=== PATIENT | female | born 1965 | race Caucasian/White ===

== ENCOUNTER 2016-10-12 22:17 | Emergency (ER) | payer OTHER ==
[2016-10-12] MEDS ORDERED: NORFLEX IM ONE (23:03)
[2016-10-12] MEDS ORDERED: TORADOL IM ONE (23:03)
--- NOTE | 2016-10-12 23:06 | PROVIDER DOCUMENTATION ---
HPI-Headache - General Source: patient - History of Present Illness-Headache Headache Location: reports: global (beginning in head) Quality of Pain: reports: aching Severity: reports: mild Onset/Duration: reports: other (3 weeks) Timing: reports: still present Headache severity at the maximum: mild Headache Exacerbated by:: reports: light Associated Symptoms: reports: nausea Similar Symptoms Previously?: No Recently seen or treated by another doctor?: No <Dena Carrasquillo - Last Filed: 10/12/16 23:06> <Meg Suarez - Last Filed: 10/12/16 23:56> - General Chief Complaint: Headache Stated Complaint: HEADACHE Time Seen by Provider: 10/12/16 22:55 Allergies/Adverse Reactions: Patient Allergies Allergy/AdvReac Type Severity Reaction Status Date / Time Sulfa (Sulfonamide Allergy RASH Verified 05/20/16 02:43 Antibiotics) - History of Present Illness-Headache Nature of Presenting Problem: 51 year old F presents to the ED with a cc of a headache x3 weeks. Pt states that pain began in her neck and is radiating to head. Pt states that it has just began to cause nausea and photophobia. (Dena Carrasquillo) Review of Systems - Adult - REVIEW OF SYSTEMS - ADULT Constitutional: denies: chills, fever Eyes: reports: no symptoms reported Ears, Nose, Mouth & Throat: reports: no symptoms reported Cardiovascular: reports: no symptoms reported Respiratory: denies: cough, shortness of breath Gastrointestinal: denies: nausea, vomiting Genitourinary: reports: no symptoms reported Musculoskeletal: reports: neck pain. denies: bone pain Integumentary: denies: skin sores/ulcer, skin thickening Neurological: reports: headache/migraines. denies: dizziness/vertigo Psychiatric: reports: no symptoms reported Endocrine: reports: no symptoms reported Hematologic/Lymphatic: reports: no symptoms reported Allergic/Immunologic: reports: no symptoms reported All Other Systems: Reviewed and Negative <Dena Carrasquillo - Last Filed: 10/12/16 23:06> Past History - Adult - PAST MEDICAL HISTORY-ADULT Review of Records: reports: Nursing Assessment Review, Medications Reviewed Major Childhood Illnesses: reports: denies history Cardiovascular: reports: HTN, hyperlipidemia Additional History: sarcoidosis - PRIOR SURGERIES/PROCEDURES Surgical/Procedure History: reports: cholecystectomy, cardiac stent, hysterectomy, BTL, orthopedic (extremity), back/neck, other (stent to left eye) - IMMUNIZATION STATUS Childhood Immunizations: See Nurse Assessment Flu Vaccine: See Nurse Assessment - SOCIAL HISTORY Smoking: cigarettes, less than 1 pack/day Provider spent 3-5 mins advising pt. on dangers of tobacco.: Discussed manners to quit use, and f/u contacts for add'l counseling. Substance Use: none/never Alcohol Use Frequency: never <Dena Carrasquillo - Last Filed: 10/12/16 23:06> - PAST MEDICAL HISTORY-ADULT Major Childhood Illnesses: reports: denies history Cardiovascular: reports: angina, hyperlipidemia Respiratory: reports: denies history Gastrointestinal: reports: denies history Obstetrical/Gynecological: reports: denies history Genitourinary: reports: denies history Musculoskeletal: reports: denies history Neurological: reports: denies history Endocrine/Immune: reports: denies history Other Conditions: reports: denies history - PRIOR SURGERIES/PROCEDURES Surgical/Procedure History: reports: cholecystectomy, cardiac stent, hysterectomy, BTL - IMMUNIZATION STATUS Childhood Immunizations: See Nurse Assessment Flu Vaccine: See Nurse Assessment - FAMILY HISTORY Family History: reviewed, not pertinent <Meg Suarez - Last Filed: 10/12/16 23:56> Physical Exam- Neurological - Physical Exam-Neuro Initial Vital Signs Reviewed: Yes General Appearance: appears well, alert, mild distress Eye Exam: bilateral eye: normal inspection, PERRL, EOMI HENMT: normocephalic/atraumatic, moist mucous membranes, normal ENT inspection Head Injury: no evidence of injury Neck: other (moderate muscle spasms in bilateral cervical PSM). 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 negative: rash - Glascow Coma Scale Best Eye Response: (4) open spontaneously Best Verbal Response: (5) oriented Best Motor Response: (6) obeys commands Total Glascow Score: 15 <Meg Suarez - Last Filed: 10/12/16 23:56> Progress <Dena Carrasquillo - Last Filed: 10/12/16 23:06> <Meg Suarez - Last Filed: 10/12/16 23:56> - PLAN OF CARE/RESULTS Progress/Plan/Lab Results: Vital Signs Temp Pulse Resp BP Pulse Ox 10/12/16 22:45 97.7 F 77 18 150/94 100 Sulfa (Sulfonamide Antibiotics) Allergy (Verified 05/20/16 02:43) RASH No Home Medications 10/12/16 Orders Category Date Time Status Ketorolac [Toradol] Med 10/12/16 23:03 Discontinued 60 mg IM NOW ONE Orphenadrine [Norflex] Med 10/12/16 23:03 Discontinued 60 mg IM NOW ONE (Meg Suarez) Departure <Dena Carrasquillo - Last Filed: 10/12/16 23:06> - Departure Time of Disposition Order: 23:55 Certified Medical Emergency: Emergent <Meg Suarez - Last Filed: 10/12/16 23:56> - Departure DIAGNOSIS: Cervicalgia Disposition: HOME 01 Condition: Good Additional Instructions: ED Follow Up Instructions: You have been treated by a care provider in the Emergency Department. These instructions are being provided to you so you can have an understanding of how to care for yourself upon discharge. Upon discharge from the Emergency Department, you are responsible for making arrangements for follow-up care by a physician of your choice. Take all prescribed medications as directed. Return to the Emergency Department immediately for any new or worsening symptoms. You may call the Physician Referral phone number at [phone] to obtain a list of Physicians who are taking new patients. Prescriptions: Ibuprofen 800 mg PO BID #20 tablet Methylprednisolone [Medrol Dosepak] 4 mg PO DIRECTED #1 package Methocarbamol 500 mg PO BID #20 tablet Ondansetron Odt [Zofran 4 mg Odt] 4 mg PO Q6H PRN PRN #15 tablet PRN Reason: Nausea Referrals: Joanna Oliva DO [Primary Care Provider] - Ronen Vergara MD [STAFF PHYSICIAN] - Attestation - Scribe Verification/Attestation Scribe:: Dena Carrasquillo Acting as Scribe for:: Meg Suarez Scribe documention review:: This chart was documented by a scribe and accurately reflects the service the provider performed and the decisions made by the provider. 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 <Meg Suarez - Last Filed: 10/12/16 23:56> Physician Attestation - Physician Attestation I, the provider, attest to the following statement:: Meg Suarez Physician documentation Attestation:: This documentation recorded by the scribe accurately reflects the service I personally performed and the decisions made by me. <Dena Carrasquillo - Last Filed: 10/12/16 23:06>
[2016-10-13 00:04] VITALS: BP 153/91
== END 2016-10-13 00:25 | disposition home or self-care (01) ==
LOC: P.ED 22:17
DX: M54.2 Cervicalgia (principal); R51 Headache; R11.0 Nausea; H53.149 Visual discomfort, unspecified; M62.838 Other muscle spasm; I10 Essential (primary) hypertension; E78.5 Hyperlipidemia, unspecified; F17.210 Nicotine dependence, cigarettes, uncomplicated; Z71.6 Tobacco abuse counseling; Z95.5 Presence of coronary angioplasty implant and graft
CPT/HCPCS: 96372; J1885; J2360